=== PATIENT | female | born 1935 | race Caucasian/White ===

== ENCOUNTER 2016-06-17 14:45 | Outpatient (CLI) | payer OTHER ==
--- NOTE | 2016-06-17 18:28 | DIAGNOSTIC IMAGING REPORT ---
PROCEDURE: MR CERVICAL SPINE W/O CONT INDICATION: ACUTE ONSET NECK PAIN;HEADACHES TECHNIQUE: Noncontrast T1, T2, and STIR sagittal images. T2 and gradient axial images. COMPARISON: None. FINDINGS: Normal alignment without fracture. Moderately severe disc and vertebral degenerative changes from C4-5 to C6-7. Disc bulges are also noted at T1-2 and T3-4. There is marked thickening of the transverse ligament of atlas with posterior displacement of the medulla and bone marrow edema at C2 suggestive of inflammatory changes. There is also secondary spinal stenosis of the foramen magnum. Cervical cord is unremarkable. C2-3: Small disc bulge with severe left facet arthropathy resulting in severe left foraminal stenosis. There is mild spinal stenosis. C3-4: Mild left posterior/ foraminal disc bulge and facet arthropathy resulting in moderate right and severe left foraminal stenosis. There is mild spinal stenosis. C4-5: Small disc bulge/spur complex with mild bilateral foraminal stenosis. Mild spinal stenosis. C5-6: Moderate left posterior disc bulge/spur complex with facet arthropathy resulting in mild right and moderate left foraminal stenosis. There is mild spinal stenosis. C6-7: Small broad-based disc bulge and mild facet arthropathy resulting in mild bilateral foraminal stenosis. No spinal stenosis. C7-T1: Mild left foraminal disc bulge resulting in mild left foraminal stenosis. No spinal stenosis. IMPRESSION: 1. Moderately severe multilevel disc and vertebral degenerative changes with multilevel disc bulging. 2. Marked thickening of the transverse ligament of atlas with posterior displacement of the medulla and stenosis of the foramen magnum. There are also bone marrow changes of the odontoid. These findings may be seen with rheumatoid arthritis. Correlate clinically. 3. Mild spinal stenosis from C2-3 to C5-6. 4. C2-3 disc bulge and left facet arthropathy with severe left foraminal stenosis 5. C3-4 disc bulge with moderate right and severe left foraminal stenosis 6. C4-5 disc bulge with mild bilateral foraminal stenosis 7. C5-6 disc bulge with mild right and moderate left foraminal stenosis 8. C6-7 disc bulge with mild bilateral foraminal stenosis 9. C7-T1 left foraminal disc bulge with mild left foraminal stenosis.
== END 2016-06-17 23:00 ==
LOC: MRI SRH 14:45
DX: M50.23 Other cervical disc displacement, cervicothoracic region (principal); M50.21 Other cervical disc displacement, high cervical region; M50.221 Other cervical disc displacement at C4-C5 level; M50.222 Other cervical disc displacement at C5-C6 level; M50.223 Other cervical disc displacement at C6-C7 level; M47.812 Spondylosis without myelopathy or radiculopathy, cervical region